=== PATIENT | female | born 1980 | race Caucasian/White ===

== ENCOUNTER → 2017-12-30 | Day surgery (SDC) | payer OTHER ==
[~2017-12-30] VITALS: Ht 167.6 cm; Wt 103.0 kg
[~2017-12-30] MED LIST: *morphine SULFATE 10 MG/ML PERIprocedure ONLY ONE; ACETAMINOPHEN 1000 MG/100 ML 100 ML IV ONE; ACETAMINOPHEN/HYDROcodone 325 MG/5 MG TAB PO PRN; ADDE25CA PO; APREPITANT 40 MG CAP ONE; BUPIVACAINE HCL PF 0.5% 30 ML VIAL ONE; BUPIVACAINE/EPINEPHRINE 0.5% PF 30 ML VIAL ONE; CHLORHEXIDINE GLUCONATE 2 % 1 PACK (2 CLOTHS) TOPICAL PRN; DEXAMETHASONE SOD PHOS 4 MG/ML VIAL IV ONE; FAMOTIDINE 20 MG/2 ML VIAL ONE; GLYCOPYRROLATE 1 MG/5 ML SYRINGE IV PUSH ONE; KETOROLAC TROMETHAMINE 30 MG/ML (IVP) VIAL IV PUSH ONE; LACTATED RINGER'S 1000 ML IV PRN; LIDOCAINE HCL 1% PF 5 ML SYRINGE OTHER ONE; METOPROLOL TARTRATE 25 MG TAB PO PRN; MIDAZOLAM HCL 2 MG/2 ML VIAL ONE; MORPHINE SULFATE 4 MG/ML INJ ONE; NEOSTIGMINE 5 MG/5 ML SYRINGE IV PUSH ONE; ONDANSETRON HCL 4 MG/2 ML VIAL IV ONE; ONDANSETRON HCL 4 MG/2 ML VIAL IV PUSH PRN; POVIDONE IODINE 5% (ANTISEPSIS KIT) 4 APPLICATIONS EACH NARE PRN; PROPOFOL 200 MG/20 ML AMP IV ONE; ROCURONIUM INJ 50 MG/5 ML SYRINGE IV PUSH ONE; SODIUM CHLORID 0.9% 500 ML IV PRN; VECURONIUM BROMIDE 20 MG VIAL IV ONE; diphenhydrAMINE HCL 50 MG/ML VIAL ONE
--- NOTE | 2017-12-30 08:33 | MH ---
cc: KENDELL SAMUEL M.D. DATE OF ADMISSION: 12/30/2017 HISTORY OF PRESENT ILLNESS: The patient is a 37-year-old white female 2, para 0-0-2-0 who has been a patient of mine for the last two years who underwent an endometrial ablation in June of 2017 for menorrhagia who presented in November due to a new onset of left-sided pain that she had been experiencing for the last two to three months. She really did not associate it with any other symptoms. The pain is sharp and severe in nature. She reported initially after ablation she had had some periods but now she has not had any and she is very pleased with that. Her primary M.D. had ordered a CT scan due to the pain, which showed a 4 cm fundal fibroid and an 8 cm dilated left adnexa thinking that possibly a hydrosalpinx. We also followed that up with an ultrasound to get a better understanding of what was happening in her pelvis and that ultrasound came back revealing the uterus to be 7.8 x 5.4 x 4.3, but indeed it has a 3.6 cm fibroid, the lining is thin at 8.7 mm. The right ovary measured normal. The left ovary measured normal but they did describe a multiloculated smooth collection adjacent to the left ovary measuring 6.3 cm, possibly a hydrosalpinx. No free fluid. So I discussed with the patient that the hydrosalpinx could be giving her this new onset of pain and that we could do a laparoscopy and remove each of her tubes and she would like to do that. We discussed the risks of the surgery to include and not be limited to infection, bleeding and damage to internal organs requiring repair such as damage to the pelvic vasculature, the bladder, the bowel, and the ureters and the patient would like to proceed. PAST MEDICAL HISTORY: The past medical history on this patient is: 1. Asthma. PAST SURGICAL HISTORY: 1. Left knee surgery. 2. Left wrist surgery. 3. Endometrial ablation. MEDICATIONS: Medications currently are: 1. Adderall. ALLERGIES TO MEDICINE: NONE. SOCIAL HISTORY: No tobacco. Occasional alcohol. No drug use. She is a teacher and single. FAMILY HISTORY: Family history is coronary artery disease. WRAPPER HAND HISTORY: No abnormal Pap. No STDs. OB HISTORY: She has two adopted children. There are no pregnancies. PHYSICAL EXAMINATION: WEIGHT: 247. VITAL SIGNS: Blood pressure 112/76, pulse is 70. BREASTS: Without masses, nodes or discharge. CHEST: Clear to auscultation bilaterally. CARDIAC: Regular rate and rhythm without murmurs, rubs or gallops. ABDOMEN: The abdomen is slightly tender in the left lower quadrant. No rebound or guarding. No hepatosplenomegaly. No costovertebral angle tenderness. No hernias noted. PELVIC EXAM: Normal external female genitalia. Vaginal vault without lesions. Cervix without lesions. No cervical motion tenderness. The uterus is nontender and palpates normal size. Right adnexa nontender. Left adnexa is slightly tender. ASSESSMENT AND PLAN: New onset of pelvic pain with hydrosalpinx. PLAN: The plan will be for diagnostic laparoscopy with bilateral salpingectomy. MD VAIBHAV Ash/JCC /12:33 PM /8:27 AM
[2017-12-30 13:15] VITALS: BP 106/68; PULSE 79; RESP 18; TEMP 98; O2SAT 97
--- NOTE | 2017-12-31 11:28 | MP ---
cc: KENDELL SAMUEL M.D. DATE OF SURGERY 12/30/2017 PREOPERATIVE DIAGNOSIS Acute left-sided pelvic pain with suspected hydrosalpinx. POSTOPERATIVE DIAGNOSIS Acute left-sided pelvic pain, left hydrosalpinx, left cystic ovary and pelvic adhesive disease. PROCEDURE PERFORMED Diagnostic laparoscopy with left salpingo-oophorectomy, right salpingectomy, and lysis of adhesions. OPERATING SURGEON Kendell Samuel MD ANESTHESIA General endotracheal FINDINGS IN SURGERY Included a normal-appearing right tube and ovary. Uterus slightly enlarged with a known fibroid. The left tube with a left hematosalpinx was adhered to the left sidewall and the left descending colon. The left ovary was multicystic and also adherent to the left sidewall and the left colon. BLOOD LOSS Minimal COMPLICATIONS None PROCEDURE IN DETAIL After proper consents were obtained, the patient was taken to the operating room where general endotracheal anesthesia was applied. She was then placed in the dorsolithotomy position and sterilely prepped and draped. At this time, a Juares catheter was placed. I used an open bivalve speculum and placed it into the vaginal vault visualizing the cervix, grasping it with the anterior lip with a single-tooth tenaculum. I then sounded the uterus to about 8 cm and placed a Hegar dilator into the cervix and Steri-Stripped it to the tenaculum to use as uterine manipulation. I then changed my gloves and went ahead to the abdomen. I placed a lidocaine with epinephrine solution in the umbilicus, placed a 5-mm incision in the umbilicus and placed a 5-mm trocar under direct visualization into the abdominopelvic cavity without difficulty. I insufflated to an adequate level of pneumoperitoneum. Inspection of the cavity revealed what I already discussed in the findings. We went ahead and placing two more 5 mm trocars in the bilateral lower quadrants midaxillary line without difficulty. We then used the Enseal to take down the adhesions of the left tube and ovary to the left sidewall and that came down nicely. I then was able to take the left tube off coming through the broad ligament underneath the tube using the Enseal all the way down until we took that off from the uterus. I then was able to get a better grab of the ovary and pull it up off of the sidewall, identify the infundibular pelvic ligament, come across that with the Enseal device and then continue removing the ovary from the broad ligament taking it from its utero-ovarian ligament and freeing it up. I then went ahead and removed the right tube coming through the broad ligament underneath it, across the connection to the uterus with the Enseal. Hemostasis was assured. We then changed our umbilical incision to a 10 and placed the 10/12 trocar into it. We used the EndoCatch through that to scoop up the both tubes and the ovary and we pulled that out through the umbilicus without difficulty. We then replaced our trocars, re-insufflated the abdomen and pelvis and identified that hemostasis was assured. We suctioned out any of the little bit of blood loss and we went ahead and removed all of our trocars, desufflated the abdomen, closed the umbilical incision with a single suture of 0 Vicryl. We then closed our skin incisions with a 4-0 Monocryl in a subcu fashion. I then removed the vaginal instruments. Hemostasis was assured. Counts were correct and the patient was taken to the recovery room. MD VAIBHAV Ash/JANES /4:39 PM /11:16 AM
== END | disposition home or self-care (01) ==
LOC: HSDC 07:37
PROVIDERS: ATTEND Obstetrics & Gynecology
DX: N70.11 Chronic salpingitis (principal); N73.6 Female pelvic peritoneal adhesions (postinfective); N83.202 Unspecified ovarian cyst, left side
CPT/HCPCS: 00840; 58661; 84702; 88305; J0131; J1100; J1200; J1885; J2250; J2270; J2405; J2710; J3010; J7120; J8501